=== PATIENT | male | born 1965 | race Hispanic/Latino ===

== ENCOUNTER → 2025-04-04 | Outpatient (CLI) | payer OTHER ==
--- NOTE | 2025-04-05 09:23 | HMCIMG ---
EXAM: CT Cardiac calcium scoring. CLINICAL HISTORY: Screening. TECHNIQUE: Thin collimated axial CT cardiac images were obtained. A CT scan is done according to ALARA (As Low As Reasonably Achievable). CONTRAST: None. COMPARISON: None provided. FINDINGS: Calcium Score: VESSEL Number of lesions Volume mm3 Equi. Mass/mg Calcium score LM 2 41.3 - 56.1 LAD 5 29.3 - 44.4 LCX 1 0.4 - 0.6 RCA 6 87.1 - 130.1 Total 14 158.1 - 231.2 IMPRESSION: The total calcium score is 231.2. 85th percentile. /Barton
== END | disposition home or self-care (01) ==
LOC: RAH 14:09
PROVIDERS: ATTEND Internal Medicine
DX: Z13.6 Encounter for screening for cardiovascular disorders (principal)
CPT/HCPCS: 75571